=== PATIENT | male | born 1980 | race Caucasian/White ===

== ENCOUNTER 2018-01-24 07:43 | Day surgery (SDC) | payer OTHER ==
[~2018-01-24 07:43] MED LIST: BUPIVACAINE 0.25%/EPI (MDV) 50 ML VIAL INJ; CEFAZOLIN 1 GM INJ; CEFAZOLIN 2 GM/50 ML (PMX) 50 ML IVPB; SOD CHLORIDE 0.9% 1,000 ML IV
[2018-01-24] MEDS ORDERED: FENTAnyl 50 MCG/ML VIAL (08:36)
[2018-01-24] MEDS ORDERED: MIDAZOLAM 1 MG/ML 2 ML INJ (08:36)
[2018-01-24] MEDS ORDERED: MIDAZOLAM 1 MG/ML 2 ML INJ IV (09:00)
[2018-01-24] MEDS ORDERED: FENTAnyl 50 MCG/ML VIAL IV ×2 (09:00)
[2018-01-24] MEDS ORDERED: MEPERIDINE 25 MG INJ IV (09:00)
[2018-01-24] MEDS ORDERED: ALBUTEROL 0.083% (NEB) 2.5 MG/3 ML AMP HHN (09:00)
[2018-01-24] MEDS ORDERED: ONDANSETRON 4 MG INJ IV ×2 (09:00→10:30)
[2018-01-24] MEDS ORDERED: DIPHENHYDRAMINE 50 MG INJ IV (09:00)
[2018-01-24] MEDS ORDERED: HYDROmorphONE (0.2 MG/ML) 10ML SYG IV ×2 (09:00)
[2018-01-24] MEDS ORDERED: DEXAMETHASONE 4 MG/ML 1 ML INJ (09:31)
[2018-01-24] MEDS ORDERED: SUCCINYLCHOLINE CHLORIDE 100 MG/5 ML SYG IV (09:31)
[2018-01-24] MEDS ORDERED: ONDANSETRON 4 MG INJ (09:31)
[2018-01-24] MEDS ORDERED: PROPOFOL 20 ML (09:32)
[2018-01-24] MEDS ORDERED: LIDOCAINE 2% (SDV) 5 ML INJ (09:32)
[2018-01-24] MEDS: POLYMYXIN B 500000 UNIT INJ (09:40)
[2018-01-24] MEDS ORDERED: ACETAMINOPHEN 1000MG/100ML IV 100 ML (09:44)
[2018-01-24] MEDS: BACITRACIN 0.9 GM OINT (09:56)
[2018-01-24] MEDS ORDERED: morphine 2 MG INJ IV (10:30)
[2018-01-24] MEDS ORDERED: KETOROLAC 30 MG INJ IV (10:30)
[2018-01-24] MEDS ORDERED: HYDROCODONE/APAP (5/325) TAB PO ×2 (10:30)
[2018-01-24] MEDS ORDERED: IBUPROFEN 600 MG TAB PO (10:30)
== END 2018-01-24 11:45 | disposition home or self-care (01) ==
LOC: SDS 07:43
DX: L05.91 Pilonidal cyst without abscess (principal); J45.909 Unspecified asthma, uncomplicated; F17.200 Nicotine dependence, unspecified, uncomplicated
CPT/HCPCS: 11772; 82962; 88304

== ENCOUNTER 2018-02-20 10:39 | Day surgery (SDC) | payer OTHER ==
[~2018-02-20 10:39] MED LIST changes: -BUPIVACAINE 0.25%/EPI (MDV) 50 ML VIAL INJ; -CEFAZOLIN 1 GM INJ; -CEFAZOLIN 2 GM/50 ML (PMX) 50 ML IVPB; +ROCURONIUM 50 MG INJ; -SOD CHLORIDE 0.9% 1,000 ML IV
[2018-02-20] MEDS ORDERED: EPHEDrine SULFATE 50 MG/5 ML SYG IV (11:30)
[2018-02-20] MEDS ORDERED: ALBUTEROL 0.083% (NEB) 2.5 MG/3 ML AMP HHN (11:30)
[2018-02-20] MEDS ORDERED: HYDROmorphONE (0.2 MG/ML) 10ML SYG IV ×3 (11:30)
[2018-02-20] MEDS ORDERED: MEPERIDINE 25 MG INJ IV (11:30)
[2018-02-20] MEDS ORDERED: DIPHENHYDRAMINE 50 MG INJ IV (11:30)
[2018-02-20] MEDS ORDERED: KETOROLAC 30 MG INJ IV (11:30)
[2018-02-20] MEDS ORDERED: MIDAZOLAM 1 MG/ML 2 ML INJ IV (11:30)
[2018-02-20] MEDS ORDERED: hydrALAzine 20 MG INJ IV (11:30)
[2018-02-20] MEDS ORDERED: FENTAnyl 50 MCG/ML VIAL IV ×2 (11:30)
[2018-02-20] MEDS ORDERED: LABETALOL HCL 20MG INJ IV (11:30)
[2018-02-20] MEDS ORDERED: ONDANSETRON 4 MG INJ IV (11:30)
[2018-02-20] MEDS ORDERED: OXYCODONE/ACETAMINOPHEN (5/325) TAB PO (11:30)
[2018-02-20] MEDS ORDERED: PROPOFOL 100 ML (11:35)
[2018-02-20] MEDS ORDERED: ROCURONIUM 50 MG INJ (11:37)
[2018-02-20] MEDS ORDERED: LIDOCAINE 100 MG SYRINGE (11:38)
[2018-02-20] MEDS ORDERED: LABETALOL HCL 20MG INJ (12:47)
[2018-02-20] MEDS: OXYMETAZOLINE 0.05% 15 ML NAS SPRAY NASAL (13:02)
[2018-02-20] MEDS: LIDOCAINE 1%/EPI 30 ML INJ (13:02)
[2018-02-20] MEDS: OXYCODONE/ACETAMINOPHEN (5/325) TAB PO (14:18)
[2018-02-20] MEDS: FENTAnyl 50 MCG/ML VIAL IV (14:34)
[2018-02-20] MEDS: METOCLOPRAMIDE 10 MG INJ IV (14:35)
== END 2018-02-20 14:46 | disposition home or self-care (01) ==
LOC: SDS 10:39
DX: J34.2 Deviated nasal septum (principal); J34.3 Hypertrophy of nasal turbinates
CPT/HCPCS: 30140; 88304